=== PATIENT | female | born 1995 | race Hispanic/Latino ===

== ENCOUNTER 2017-12-06 12:37 | Inpatient (IN) | payer OTHER ==
[2017-12-06] MEDS ORDERED: Lidocaine 1% Inj (20ml) IJ STA (13:12)
[2017-12-06] MEDS ORDERED: Lidocaine 1% Inj (20ml) ONE (13:29)
--- NOTE | 2017-12-06 13:30 | ED PDOC ---
HPI: Psych/Substance Abuse Time Seen by Provider: 12/06/17 12:51 Chief Complaint (Nursing): Psychiatric Evaluation Chief Complaint (Provider): Psychiatric Evaluation History Per: Patient, EMS History/Exam Limitations: no limitations Suicide/Self Injury Attempted (Context): Other (cuts to the left forearm) Associated Symptoms: Depression Additional Complaint(s): 22 y/o female presents to the ED for psychiatric evaluation. Patient reports she was driving to work this morning when she couldn't find a parking spot. She decided to tail puller and began crying, at which time her friend called EMS and PD to arrive at the scene. Upon EMS arriving, they noticed patient had recently cut her left forearm multiple times. Patient states she has been struggling with depression since she was 12 but has never seen a mental specialist. She also has never been clinically diagnosed with depression. Patient does admit to self harming in the past. Denies ever making a suicide attempt or a current plan. She also denies any homicidal ideation, auditory or visual hallucinations. Patient states there are no specific triggers to her emotional state, she just wakes up some days and it's "really bad". She has no physical complaints at this time. LMP: now PMD: patient is unsure, states the doctor is in [place], [place] Past Medical History Reviewed: Historical Data, Nursing Documentation, Vital Signs Vital Signs: Last Vital Signs Temp 98.2 F 12/06/17 12:45 Pulse 57 L 12/06/17 12:45 Resp 18 12/06/17 12:45 BP 139/96 H 12/06/17 12:45 Pulse Ox 99 12/06/17 12:45 - Medical History PMH: Depression (possible) - Surgical History Surgical History: No Surg Hx - Family History Family History: States: No Known Family Hx - Social History Current smoker - smoking cessation education provided: No Ex-Smoker (has not smoked in the last 12 months): No Alcohol: None Drugs: Denies - Home Medications Home Medications: Ambulatory Orders Medication Instructions Recorded Biotin [Biotin] 1 cap PO DAILY 12/06/17 Norethindrone-Ethinyl Estrad 1 tab PO DAILY 12/06/17 [Alyacen 1-35-28 Tablet] - Allergies Allergies/Adverse Reactions: Allergies Allergy/AdvReac Type Severity Reaction Status Date / Time No Known Allergies Allergy Verified 12/06/17 12:45 Review of Systems ROS Statement: Except As Marked, All Systems Reviewed And Found Negative Skin: Positive for: Other (multiple cuts to the left forearm from self-harm) Psych: Positive for: Depression. Negative for: Suicidal ideation (or homicidal ideation) Physical Exam - Reviewed Nursing Documentation Reviewed: Yes Vital Signs Reviewed: Yes - Physical Exam Comments: GENERAL APPEARANCE: Patient is awake, alert, oriented x 3. Tearful, flat affect. Avoids eye contact with examiner. SKIN: (+) multiple scabbed, superficial, vertically oriented abrasions to the left, mid ventral forearm. (+)2 cm linear laceration to the medial aspect of the left proximal forearm (-) no active bleeding, (-) no surrounding erythema or cellulitis (-) discharge/drainage. EXT: (+) Full ROM of the left arm with (-) tenderness EYES: Pupils equal and reactive. ENMT: Mucous membranes moist. Airway patent: (-) stridor. NECK: Supple, FROM CHEST AND RESPIRATORY: (-) rales, (-) rhonchi, (-) wheezes; breath sounds equal. Respirations even and nonlabored. ABDOMEN: Soft, (-) distention, (-) tenderness, (-) guarding. NEURO AND PSYCH: Mental status as above. (-) facial asymmetry; Gait steady, speech clear. - Laboratory Results Result Diagrams: 12/06/17 15:50 12/06/17 15:50 Urine POC: Negative - ECG O2 Sat by Pulse Oximetry: 99 (RA) Pulse Ox Interpretation: Normal Medical Decision Making Medical Decision Making: Time: 13:00 Impression: Depression, forearm laceration, skin abrasions Plan: * Crisis evaluation * Preg Test * Laceration Repair, Lidocaine 1% 5mL * Re-evaluation * 1:1 observation : Negative 1500 Laceration repair performed by Geoff CORDON. Patient tolerated procedure well. Procedure note below. Patient reports a frontal headache at this time rated 7/10. Patient reports a history of similar headaches that usually resolve spontaneously. Ibuprofen 600mg PO ordered. Procedure Note: 2 cm laceration in length, linear and superficial. Irrigated with 100cc of saline. No foreign body noted. No betadine prep needed. Numbed laceration with 5 mL of lidocaine 1%. Closed with 5-0 Monocryl x9 stitches. Wound complexity was simple. Sterile dressing was applied. Patient tolerated procedure well. Patient advised that sutures are absorbable and do not need to be removed. Educated on wound care. 1530 Per crisis evaluation, patient to be admitted for Depression per Dr Yanez. -CBC, CMP, U/A, and urine drug screen ordered. 1625 Labs reviewed and grossly unremarkable. Vitals stable. Patient is medically stable for psychiatric admission. On exam, patient remains AAOx3, in no acute distress. On exam, neck is supple, lungs CTA, cardiac RRR, abdomen is soft and non-tender, neuro exam shows no focal findings. Diagnostic results d/w the patient in great detail. Dx of depression, arm laceration, skin abrasions d/w the patient. Based on history, exam, and diagnostic results plan will be for inpatient admission. Arrangements made for admission. Scribe Attestation: Documented by Aurelia Harvey acting as a scribe Violet Tellez PA-C. Scribe Attestation: All medical record entries made by the Scribe were at my direction and personally dictated by me. I have reviewed the chart and agree that the record accurately reflects my personal performance of the history, physical exam, medical decision making, and the department course for this patient. I have also personally directed, reviewed, and agree with the discharge instructions and disposition. Disposition - Clinical Impression Clinical Impression: Depression, Arm laceration, Skin abrasion - Patient ED Disposition Is Patient to be Admitted: Yes Counseled Patient/Family Regarding: Diagnosis - Disposition Disposition Time: 16:28 Condition: STABLE - Pt Status Changed To: Hospital Disposition Of: Inpatient - Admit Certification Admit to Inpatient:: After my assessment, the patient will require hospitalization for at least two midnights. This is because of the severity of symptoms shown, intensity of services needed, and/or the medical risk in this patient being treated as an outpatient. Results - Lab Results Lab Results: 12/06/17 12/06/17 12/06/17 15:50 15:50 15:50 WBC RBC Hgb Hct MCV MCH MCHC RDW Plt Count MPV Neut % (Auto) Lymph % (Auto) Ritchie % (Auto) Eos % (Auto) Baso % (Auto) Neut # (Auto) Lymph # (Auto) Ritchie # (Auto) Eos # (Auto) Baso # (Auto) Sodium 140 Potassium 4.1 Chloride 103 Carbon Dioxide 25 Anion Gap 16 BUN 12 Creatinine 0.8 Est GFR ( Amer) > 60 Est GFR (Non-Af Amer) > 60 Random Glucose 93 Calcium 9.2 Total Bilirubin 0.7 AST 73 H ALT 48 Alkaline Phosphatase 66 Total Protein 7.7 Albumin 4.4 Globulin 3.3 Albumin/Globulin Ratio 1.3 Urine Color Yellow Urine Clarity Clear Urine pH 6.0 Ur Specific [place] 1.013 Urine Protein Negative Urine Glucose (UA) Neg Urine Ketones Negative Urine Blood Negative Urine Nitrate Negative Urine Bilirubin Negative Urine Urobilinogen 0.2-1.0 Ur Leukocyte Esterase Neg Urine RBC (Auto) 1 Ur Squamous Epith Cells < 1 Urine Bacteria Rare Urine Opiates Screen Negative Urine Methadone Screen Negative Ur Barbiturates Screen Negative Ur Phencyclidine Scrn Negative Ur Amphetamines Screen Negative U Benzodiazepines Scrn Negative U Oth Cocaine Metabols Negative U Cannabinoids Screen Negative 12/06/17 15:50 WBC 8.5 RBC 4.17 Hgb 13.1 Hct 37.5 MCV 89.9 MCH 31.5 H MCHC 35.0 RDW 13.2 Plt Count 320 MPV 8.0 Neut % (Auto) 67.4 Lymph % (Auto) 26.0 Ritchie % (Auto) 5.6 Eos % (Auto) 0.6 Baso % (Auto) 0.4 Neut # (Auto) 5.7 Lymph # (Auto) 2.2 Ritchie # (Auto) 0.5 Eos # (Auto) 0.1 Baso # (Auto) 0.0 Sodium Potassium Chloride Carbon Dioxide Anion Gap BUN Creatinine Est GFR ( Amer) Est GFR (Non-Af Amer) Random Glucose Calcium Total Bilirubin AST ALT Alkaline Phosphatase Total Protein Albumin Globulin Albumin/Globulin Ratio Urine Color Urine Clarity Urine pH Ur Specific [place] Urine Protein Urine Glucose (UA) Urine Ketones Urine Blood Urine Nitrate Urine Bilirubin Urine Urobilinogen Ur Leukocyte Esterase Urine RBC (Auto) Ur Squamous Epith Cells Urine Bacteria Urine Opiates Screen Urine Methadone Screen Ur Barbiturates Screen Ur Phencyclidine Scrn Ur Amphetamines Screen U Benzodiazepines Scrn U Oth Cocaine Metabols U Cannabinoids Screen
[2017-12-06 15:57] LABS: BASO % 0.4 % (0.0-2.0); EOS # 0.1 K/uL (0.0-0.7); EOS % 0.6 % (0.0-4.0); HEMOGLOBIN 13.1 g/dL (12.0-16.0); LYMPH # 2.2 K/uL (1.0-4.3); MEAN CELL VOLUME 89.9 fl (81.0-99.0); MEAN CORPUSCULAR HEMOGLOBIN 31.5 pg (27.0-31.0); MONO # 0.5 K/uL (0.0-0.8); MONO % 5.6 % (0.0-10.0); NEUT # 5.7 K/uL (1.8-7.0); NEUT % 67.4 % (50.0-75.0); NRBC % 0.1 % (0.0-0.0); RBC 4.17 Mil/uL (3.80-5.20); RED CELL DISTRIBUTION WIDTH 13.2 % (11.5-14.5); WHITE BLOOD COUNT 8.5 K/uL (4.8-10.8)
[2017-12-06 16:00] LABS: SQUAMOUS EPITHIAL < 1 /hpf (0-5); URINE BACTERIA RARE (<OCC); URINE BILIRUBIN NEGATIVE (NEGATIVE); URINE BLOOD NEGATIVE (NEGATIVE); URINE CLARITY CLEAR (Clear); URINE COLOR YELLOW (YELLOW); URINE GLUCOSE (UA) NEG (Normal); URINE LEUKOCYTE ESTERASE NEG Leu/uL (Negative); URINE PROTEIN NEGATIVE (NEGATIVE); URINE UROBILINOGEN 0.2-1.0 mg/dL (0.2-1.0)
[2017-12-06 16:08] LABS: ALB/GLOB RATIO 1.3 (1.0-2.1); ALBUMIN 4.4 g/dL (3.5-5.0); ALT/SGPT 48 U/L (9-52); AST/SGOT 73 U/L (14-36); BLOOD UREA NITROGEN 12 mg/dl (7-17); CALCIUM 9.2 mg/dL (8.4-10.2); GFR AFRICAN-AMERICAN > 60; GFR NON-AFRICAN AMERICAN > 60
[2017-12-06 16:21] LABS: BARBITURATES, UR NEGATIVE (NEGATIVE); BENZODIAZEPINES, UR NEGATIVE (NEGATIVE); OPIATES, UR NEGATIVE (NEGATIVE); PHENCYCLIDINE, UR NEGATIVE (NEGATIVE)
[2017-12-06] MEDS ORDERED: Magnesium Hydroxide Susp 30 ml UD PO PRN (22:12)
[2017-12-06] MEDS ORDERED: Alum-Mag Hydrox-Simethicone Susp (30 mL) PO PRN (22:12)
[2017-12-06] MEDS ORDERED: DiphenhydrAMINE 50 mg/ml Inj IM PRN (22:12)
[2017-12-06 22:38] VITALS: RESP 18
--- NOTE | 2017-12-06 22:58 | PCM.BM ---
<Marilin Mccann Shaggy - Last Filed: 12/06/17 22:56> Treatment Plan Problems - Problems identified on initial assessmt Self Harm Date Initiated: 12/06/17 Time Initiated: 22:56 Assessment reference: NA Status: Active Hopelessness/ Helplessness Date Initiated: 12/06/17 Time Initiated: 22:56 Assessment reference: NA Status: Active Altered Sleep Patterns Date Initiated: 12/06/17 Time Initiated: 22:57 Assessment reference: NA Status: Active Treatment assets and liabiliti Patient Assests: cooperative, self-reliant, ADL independent, physically healthy , negotiates basic needs Patient Liabilities: live alone, poor support system, relationship conflicts - Milieu Protocol Maintain good personal hygiene: daily Encourage regular showers, every shift Remind patient to perform daily oral care Conduct patient checks and document Observation sheet: Q15 minutes Maintain personal safety: every shift Educate patient to report safety concerns to staff, every shift Monitor environment for contraband/sharps Medication safety: Monitor for expected outcome, potential side effects: every shift, Assess barriers to learning: every shift, Assess readiness for medication education: every shift <Darren Snyder - Last Filed: 12/08/17 07:07> Family Contact Family involvement: Family/SO is involved Family contact: Patient declines to allow family contact at present Family contact name: Pt refused. - Goals for Treatment Patient goals for treatment: Pt reported that she often feels overwhelmed and identified impulsivity as main factors for her depression and self-harm behaviors. Pt reported that she would like to begin to take medications in hopes that she may receive some initial relief from her mental health symptoms. Pt is motivated to engage in outpatient therapy to learn positive coping skills and process past negative life experiences. Discharge/Continuing Care - Education Needs Education Needs: Patient Medication, Patient Diagnosis/Disease Process, Patient Coping Skills, Patient Aftercare Safety Plan - Discharge Discharge Criteria: Tolerates medication w/o severe side effects, Free of Suicidal thoughts, Free of agitation, Normal sleep pattern, Reduction of target symptoms Discharge to:: Home - Additional Comments 12/07/17 11:10 Pt spoke about her job and concerns that this hospitalization may negatively impact her employment. Pt currently has a [address] and rescinding was discussed, yet pt is still currently weighing her options. - Treatment Team Participation Discussed with Family/SO: No Was Patient/Family/SO present at Treatment Team Meeting: Yes <Bharat Yanez - Last Filed: 12/08/17 13:50> - Diagnosis (1) Depression Status: Acute Interventions: psychotherapy, pharmacotherapy 12/08/17 13:18
[2017-12-07 09:53] LABS: T4 8.21 ug/dl (5.5-11.0)
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
[2017-12-08 03:48] VITALS: O2SAT 99
--- NOTE | 2017-12-08 13:58 | PCM.PYCHPN ---
Psychiatric Progress Note - Psychiatric Progress Note Patient seen today, length of contact: pt evaluated discussed with team chart reviewed Patient Chief Complaint: I feel calmer and I know I need help Problems Identified/Issues Discussed: pt evaluated, reported mood is calmer and that she is able to reflect on the events that led to her admission, pt reported that she did cut herself not with the intent of suicide but due to feelings of despair and frustration as she has been overwhelmed by her current responsibilities including financial strains and the lack of any support from her parents , CBT provided and discussed with pt the meaning of { acting out } and the importance of therapy to develop better coping skills with stress, pt agreed to be linked to outpatient therapy, no reported side effects of abilify attending groups, denied any current suicidal or homicidal ideation Medical Problems: pt received counseling at age 16 and 20, no histor y of psychiatric hospitalization DSM 5 Symptoms Update: major depression impulse control disorder Medication Change: No Medical Record Reviewed: Yes Mental Status Examination - Cognitive Function Orientation: Person, Place, Situation Attention: WNL Concentration: WNL Association: WNL Fund of Knowledge: WNL - Mood Mood: Depressed, Anxious - Affect Affect: Constricted, Depressed - Speech Speech: Appropriate - Formal Thought Process Formal Thought Process: No Impairment Psychotic Thoughts and Behaviors: pt denied psychotic symptoms, non elicited - Suicidal Ideation Suicidal Ideation: No - Homicidal Ideation Homicidal Ideation: No Goal/Treatment Plan - Goal/Treatment Plan Need for Continued Stay: Remain at risks for inpatient hospitalization, Severe depression anxiety, Discharge may exacerbated symptoms, Failed transitioning Progress Toward Problem(s) and Goals/Treatment Plan: abilify 5mg for poor impulse control and depression CBT group and supportive therapy Estimated Date of D/C: 12/09/17
[2017-12-08 18:28] VITALS: BP 114/68; PULSE 62; TEMP 97.4
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
== END 2017-12-09 12:24 | disposition home or self-care (01) | DRG 881 ==
LOC: H.ER 12:37 → H.ERHOLD 16:28 → H.PSYCH 22:02
PROVIDERS: ADMIT Psychiatry & Neurology Psychiatry; ATTEND Psychiatry & Neurology Psychiatry
PROC: GZ58ZZZ Individual Psychotherapy, Cognitive-Behavioral (ICD-10-PCS; principal; 2017-12-06)
PROC: GZHZZZZ Group Psychotherapy (ICD-10-PCS; 2017-12-06)
PROC: GZ56ZZZ Individual Psychotherapy, Supportive (ICD-10-PCS; 2017-12-06)
PROC: 0HQEXZZ Repair Left Lower Arm Skin, External Approach (ICD-10-PCS; 2017-12-06)
DX: F32.9 Major depressive disorder, single episode, unspecified (principal); F63.9 Impulse disorder, unspecified; S51.812A Laceration without foreign body of left forearm, initial encounter; X83.8XXA Intentional self-harm by other specified means, initial encounter; Y92.810 Car as the place of occurrence of the external cause; R51 Headache; Z62.820 Parent-biological child conflict